=== PATIENT | male | born 1960 ===

== ENCOUNTER 2017-11-17 06:28 | Inpatient (IN) ==
[~2017-11-17 06:28] MED LIST: BACITRACIN 50,000 UNIT VIAL IRRIG ONE; LIDOCAINE W/ SODIUM BICARB 0.5 ML SYR ONE; LIDOCAINE W/ SODIUM BICARB 0.5 ML SYR SUBD ONE; Lactated Ringers 1,000 ML PRIMARY IV ONE; Sodium Chloride 0.9% vial 10 ML ONE; THROMBIN (BOVINE) 20,000 UNIT KIT TOPICAL ONE; ceFAZolin Inj 2gm (Premix) 2 GM/50 ML BAG IV ONE
[2017-11-17] MEDS ORDERED: BACITRACIN/POLYMYXIN 0.9 GM PACKET TOPICAL ONE (06:34)
[2017-11-17] MEDS ORDERED: Vancomycin Inj 1gm vial ONE (06:34)
[2017-11-17] MEDS ORDERED: REMIFENTANIL 1 MG/1 ML IV ONE ×10 (07:12→18:03)
[2017-11-17] MEDS ORDERED: MIDAZOLAM 5 MG/1 ML ONE (07:12)
[2017-11-17] MEDS ORDERED: fentaNYL Inj 250 MCG/5 ML VIAL ONE (07:12)
[2017-11-17] MEDS ORDERED: Propofol 1,000 MG/100 ML VIAL IV ONE ×3 (07:16→12:38)
[2017-11-17] MEDS ORDERED: LIDOCAINE MPF 2% - 5 ML (20 MG/1 ML) ONE ×3 (07:25→18:50)
[2017-11-17] MEDS ORDERED: LIDOCAINE HCL 2 % 10 ML JELLY URO-JECT TOPICAL ONE ×2 (08:40→08:41)
[2017-11-17] MEDS ORDERED: LIDOCAINE W/ SODIUM BICARB 0.5 ML SYR ONE (08:42)
[2017-11-17] MEDS ORDERED: Lactated Ringers 1,000 ML PRIMARY IV ONE ×4 (09:34→14:00)
[2017-11-17] MEDS ORDERED: PROPOFOL 10 MG/1 ML (200 MG/20 ML) VIAL IV ONE ×4 (11:11→18:45)
[2017-11-17] MEDS ORDERED: ONDANSETRON 4 MG/2 ML VIAL IVP PRN ×2 (13:03→16:31)
[2017-11-17] MEDS ORDERED: LIDOCAINE W/ SODIUM BICARB 0.5 ML SYR SUBD PRN (13:03)
[2017-11-17] MEDS ORDERED: Prochlorperazine Edisylate Inj 10mg/2ml vial IVP PRN (13:03)
[2017-11-17] MEDS ORDERED: Sodium Chloride 0.9% vial 10 ML ONE (13:08)
[2017-11-17] MEDS ORDERED: BACITRACIN 50,000 UNIT VIAL IRRIG ONE (13:09)
[2017-11-17] MEDS ORDERED: KETOROLAC 30 MG/1 ML VIAL ONE (14:34)
--- NOTE | 2017-11-17 14:36 | OPNOTE.NEU ---
Operative Note Operative Note: Red text is View ONLY and will NOT be part of the Report 1. The following text MUST be edited 2. Press F4 (the cursor will highlight the text in the [] that requires editing) 3. Edit highlighted text 4. Repeat until the complete. Neurosurgical Services Operative Note [facility] [place] Date of Surgery: November 17, 2017 Preoperative Diagnosis: L5-S1 Spondylolisthesis Lumbar Radiculopathy Post-Op Diagnosis: Same Procedure(s): L5-S1 Posterior Decompression and Fusion 1. Posterior decompression with complete facetectomy, 2. Inner body arthrodesis; 3. Implantation Insert and Rotate Allograft Bone Spacer, 4. Non-segmental pedicle screw instrumentation, 5. Inner transverse fusion; () 6. Preparation of graft: A. [place] of local bone graft; same incision, B. [place] of morselized graft iliac crest; different incision; C. Bone marrow aspirate, D. Allograft demineralized bone matrix and calcium osteopromotive compound , 7. Intraoperative microscopy, microsurgical technique 8. Intraoperative fluoroscopy; [id number] 9. Continuous intraoperative motor and sensory monitoring Surgeon(s): Zane Pollack MD Rehabilitation Nurse(s): EPHRAIM Cunningham Anesthesia: General Anesthesiologist / ACCESS LEAD: Maximilian Cabrera Brief Findings: Severe bilateral right more than left foraminal stenosis. Spondylolysis of L5. Procedure(s): We discussed the procedure, risks, advantages and disadvantages of surgical intervention at length. To prevent further pain, disability and potential progression of neurologic deficits, the patient would like to proceed with surgery. Introduction: After obtaining informed consent, careful consideration of the pre -operative studies and evaluation, the patient asked to proceed with surgery. The patient was taken to the operating room, given an anesthetic, positioned and prepared for surgery. All pressure points were meticulously padded and great care was taken to insure the patient was appropriately positioned to avoid any abnormal strain on the extremities or any other area. The operative region was prepared with iodine solution and isolated aseptically using routine sterile draping. Position / Approach: The patient was placed in the prone position such that a posterior approach could be taken to the lumbar spine. Exposure: A midline incision was opened sharply and extended slightly cephalad and caudad so as to incorporate the abnormal level of the patient's spine using the fluoroscope for visualization and planning. Dissection was carried with electrocautery through the subcutaneous tissues then subperiosteally along the spinous processes then lamina laterally to the lateral facet joint. A self retaining retractor was inserted exposing the inner laminar space, facet joint and space lateral to the facet joint. DECOMPRESSION: As the spine was exposed, it was clear that the involved joint was markedly incompetent. The lamina of L5 was free floating. The joint was removed medial to lateral confirming there was foraminal stenosis from herniated disk as well as calcification which extended out into the foramen laterally. To adequately decompress the level, both facets were completely removed. There was herniated disk beneath the thecal sac and removal with down biting curettes with minimal manipulation of the thecal sac. Annulotomies were placed bilaterally and disk distractor's were placed in the disk space. While distracting, a radical discectomy was performed bilaterally. The epidural space was explored extensively also to confirm no further pressure was present on any of the exiting or traversing neural elements. ARTHRODESIS: The endplates above and below the abnormal disk were scraped of cartilaginous tissue and allograft insert and rotate machined bone graft spacers were placed bilaterally. The space between the bone graft was preloaded with the bone graft mixture described below, and this mixture was also placed lateral to the bone spacers within the disk space. The bone spacers were countersunk appropriately using the fluoroscope for visualization. HARVEST / PREPARATION of BONE GRAFT: The "bone graft" was prepared from the patient's own bone derived from the left hip collected by curetting bone from the hip through a separate slab incision([id number]). This morselized bone was admixed with bone marrow aspirate also obtained from the hip ([id number]). Autologous local bone which was removed during the decompression through the same incision used for the fusion was stripped of surrounding soft tissues, morselized ([id number]) and mixed with osteopromotive calcium compound as well as allograft demineralized bone matrix ([id number]), and this was combined with the previously described hip graft and concentrated bone marrow aspirate to form the "bone graft." NON SEGMENTAL INSTRUMENTATION: The pedicles of above and below the abnormal disk were then identified under direct vision as well as using the fluoroscope for visualization. The pedicles were probed and tapped and pedicle screws were advanced, which were further tested using motor stimulation and monitoring. The screws were identified to have appropriate impedances suggesting no evidence of any contact with the surrounding neural elements. Having placed pedicle screws, they were interconnected with rods. INNER TRANSVERSE FUSION: Attention was directed to the lateral aspect of the spine. The transverse processes above and below the level were eburnated using a high speed drill equipped with a colton bur. Between this region of bone, the patient's own bone, described previously as "bone graft mixture", consisting of allograft, demineralized bone matrix, calcium compound, bone marrow aspirate, as well as morselized graft from the hip were placed between the transverse processes. NEED FOR FORMS DESIGNER: Ace Dumont PA-C, was instrumental throughout the operation to assist with exposure of the neural structures and protect them as the bony elements were removed. He was also instrumental during placement of the implant(s) which often takes more than two hands to perform safely and efficiently. OTHER TOOLS USED / UTILITY: All manipulation of the neural elements was performed using the microscope for visualization. As well, the fluoroscope was used to confirm the levels as indicated as well as to assist during implant placement and later to assess the patient's spinal alignment. There were no intra operative complications. Motor and sensory monitoring was performed throughout the procedure by a certified monitoring forestry technician in the room in communication with a remote monitoring physician and no abnormal neurological findings were encountered. CLOSURE: Thereafter, the wound was irrigated with copious amounts of antibiotic impregnated saline solution. Immaculate hemostasis was achieved using thrombin soaked Gelfoam, bone wax along the bony margins, as well as electrocautery. The wound was then closed in anatomical layers using Vicryl suture in the subcutaneous tissues followed by barbara on the skin. Estimated blood loss was less than 350 cc and none was replaced. Following the procedure the patient will be returned to the supine position, extubated then transferred to the recovery room, anticipating them to be in stable condition as compared to pre- surgically. A drain was placed in the epidural space prior to closure tunneled to an exit site lateral to the formed incision. Estimated Blood Loss: 350 cc Operative hemorrhage? Yes, expected amount. Drains: Hemovac Condition: Good Complications: None Specimen: None Authenticated by Dr. Pollack On Production
[2017-11-17] MEDS ORDERED: Sodium Chloride 0.9% 250 ML IV ONE (14:45)
[2017-11-17] MEDS ORDERED: ceFAZolin 1 GM VIAL ONE (14:45)
[2017-11-17] MEDS ORDERED: HYDROmorphone 2 MG/1 ML ONE ×2 (15:01→15:48)
[2017-11-17] MEDS: HYDROmorphone 2 MG/1 ML IVP PRN ×3 (15:03→15:54)
--- NOTE | 2017-11-17 15:22 | CRNA.PROGR ---
Anesthesia Recovery Phase I - Post Anesthesia Evaluation Patient's Condition on Arrival in Phase I: Fair Pain Level: 0 (intubated breathing on own with t-piece in place)
--- NOTE | 2017-11-17 15:23 | CRNA.PROGR ---
Anesthesia Time - - Start date: 11/17/17 End date: 11/17/17 - Procedure/Recovery Time Anesthesia : Time In: 08:50 Anesthesia : Time Out: 14:43 Anesthesia : Total Time: 353 - Total Anesthesia Time Total Anesthesia Time (minutes): 353 - Other Weight: 129.274 kg Height: 5 ft 9 in Body Mass Index (BMI): 42.0 Physical Status: P2 Anesthesia Type: General Anesthesia : ET (prone position)
[2017-11-17] MEDS ORDERED: Acetaminophen 1000mg Inj 1,000 MG/100 ML VIAL IV ONE (15:25)
[2017-11-17] MEDS ORDERED: fentaNYL Inj 100 MCG/2 ML VIAL ONE (15:26)
[2017-11-17] MEDS: fentaNYL Inj 100 MCG/2 ML VIAL IVP PRN ×2 (15:27→15:44)
--- NOTE | 2017-11-17 15:58 | DI ---
XR L-SPINE 2-3 VW,11/17/2017 3:24 PM: Clinical History: Posterior fusion and interbody fusion of the lower lumbar spine. Previous Exam: None at this facility. Findings: AP and crosstable lateral views of the lumbar spine are obtained, and demonstrate transpedicular fusi on of L5/S1. Overlying skin barbara are noted. Interbody fusion device is not well evaluated on this exam. Overlying EKG leads are seen. Impression: Postsurgical changes as above. Examination is otherwise limited due to poor penetration.
[2017-11-17] MEDS ORDERED: DOCUSATE 100 MG CAPSULE PO PRN (16:31)
[2017-11-17] MEDS ORDERED: CALCIUM CARBONATE 500 MG (TUMS) CHEWABLE TABLET PO PRN (16:31)
[2017-11-17] MEDS ORDERED: DEXTROSE 50%-WATER SYRINGE 50 ML SYRINGE IVP PRN (16:31)
[2017-11-17] MEDS ORDERED: ACETAMINOPHEN 325 MG TABLET PO PRN (16:31)
[2017-11-17] MEDS ORDERED: INSULIN ASPART 55 UNIT SUBCUT SCH (16:31)
[2017-11-17] MEDS ORDERED: DEXTROSE 31 GM GEL PO PRN (16:31)
[2017-11-17] MEDS ORDERED: Non-Formulary Drug (Cetirizine Hcl [Wal-Zyr] 10 MG) PO SCH (16:31)
[2017-11-17] MEDS ORDERED: MORPHINE SULFATE 2 MG/1 ML IVP PRN (16:31)
[2017-11-17] MEDS ORDERED: D5-1/2NS + 20mEq KCL 1,000 ML PRIMARY IV SCH (16:31)
[2017-11-17] MEDS ORDERED: BISACODYL 10 MG SUPPOSITORY RECTAL PRN (16:31)
[2017-11-17] MEDS ORDERED: CLOBETASOL PROPIONATE TOPICAL SCH (16:31)
[2017-11-17] MEDS ORDERED: ALBUTEROL INH PRN (16:31)
[2017-11-17] MEDS ORDERED: Zolpidem Tab 5 MG TAB PO PRN (16:31)
[2017-11-17] MEDS ORDERED: Insulin Sliding Scale Protocol SUBCUT PRN (16:31)
[2017-11-17] MEDS ORDERED: HYDRALAZINE 20 MG/1 ML IVP PRN (16:31)
[2017-11-17] MEDS ORDERED: LABETALOL 20 MG/4 ML (5 MG/1 ML) SYRINGE IVP PRN (16:31)
[2017-11-17] MEDS ORDERED: Glucagon Inj Vial 1 MG/ML VIAL IM PRN (16:31)
[2017-11-17] MEDS ORDERED: Ondansetron ODT Tab 4 MG TAB PO PRN (16:31)
[2017-11-17] MEDS: Insulin Lispro Flexpen 300 UNIT/3 ML INSULN.PEN SUBCUT SCH ×2 (17:35→20:45)
[2017-11-17] MEDS: Insulin Detemir 300unit/3ml Flexpen SUBCUT SCH ×2 (17:36→20:46)
[2017-11-17] MEDS: oxyCODONE-ACETAMINOPHEN 5-325 TAB PO PRN ×2 (18:00→21:34)
[2017-11-17] MEDS: MORPHINE SULFATE 4 MG/1 ML IVP PRN ×2 (19:34→23:14)
[2017-11-17] MEDS: DIAZEPAM 5 MG TABLET PO PRN (19:42)
[2017-11-17] MEDS: KETOROLAC 15 MG/1 ML VIAL IVP SCH (20:07)
[2017-11-17] MEDS: GABAPENTIN 300 MG CAPSULE PO SCH (20:44)
[2017-11-17] MEDS: Rosuvastatin Tab 20 MG TAB PO SCH (20:45)
[2017-11-17] MEDS: ceFAZolin Inj 1 GM in Sodium Chloride 0.9% 100 ML IV SCH (22:42)
[2017-11-17] MEDS: CYCLOBENZAPRINE 10 MG TABLET PO PRN (23:14)
[2017-11-18] MEDS: MORPHINE SULFATE 2 MG/1 ML IVP PRN ×4 (01:01→07:13)
[2017-11-18] MEDS: DIAZEPAM 5 MG TABLET PO PRN (01:17)
[2017-11-18] MEDS: oxyCODONE-ACETAMINOPHEN 5-325 TAB PO PRN ×6 (01:17→23:46)
[2017-11-18] MEDS: KETOROLAC 15 MG/1 ML VIAL IVP SCH ×4 (02:03→20:12)
[2017-11-18] MEDS: MORPHINE SULFATE 4 MG/1 ML IVP PRN ×2 (03:39→21:29)
[2017-11-18] MEDS: LEVOTHYROXINE 50 MCG TABLET PO SCH (04:45)
[2017-11-18] MEDS ORDERED: INSULIN ASPART 45 UNIT SUBCUT SCH (07:00)
[2017-11-18] MEDS: OMEPRAZOLE 20 MG CAPSULE PO SCH (07:00)
[2017-11-18] MEDS: ceFAZolin Inj 1 GM in Sodium Chloride 0.9% 100 ML IV SCH (07:00)
[2017-11-18] MEDS: Insulin Lispro Flexpen 300 UNIT/3 ML INSULN.PEN SUBCUT SCH ×4 (07:01→20:29)
[2017-11-18 07:24] LABS: BASOPHILS # (AUTO) 0.01 10*3/UL; BASOPHILS % (AUTO) 0.1 % (0-1); EOSINOPHILS # (AUTO) 0.06 10*3/UL; EOSINOPHILS % (AUTO) 0.4 % (0-8); Hematocrit [HCT] 43.3 % (42.0-52.0); Hemoglobin [HGB] 14.1 g/dL (14.0-18.0); LYMPHOCYTES # (AUTO) 1.57 10*3/uL; MEAN CORPUSCULAR HEMOGLOBIN 28.6 PG (27-31); MEAN CORPUSCULAR HGB CONC 32.6 g/dL (33-37); MEAN CORPUSCULAR VOLUME 87.8 FL (80-90); MEAN PLATELET VOLUME 9.5 FL (7.4-12.2); MONOCYTES # (AUTO) 1.08 10*3/UL (0.3-0.8); MONOCYTES % (AUTO) 7.9 % (5-15); NEUTROPHILS # (AUTO) 10.87 10*3/UL; NEUTROPHILS % (AUTO) 79.8 % (50-80); RED BLOOD COUNT 4.93 10^6/uL (4.70-6.10)
[2017-11-18 07:33] LABS: PLATELET MORPHOLOGY COMMENT NORMAL MORPHOLOGY (NORM); RBC MORPHOLOGY COMMENT NORMAL MORPHOLOGY (NORM); WBC MORPHOLOGY COMMENT NORMAL MORPHOLOGY (NORM)
[2017-11-18 07:44] LABS: BLOOD UREA NITROGEN 13 mg/dL (7-22); BUN/CREATININE RATIO 16.25 (6-20)
[2017-11-18] MEDS: HYDROCHLOROTHIAZIDE 25 MG TABLET PO SCH (08:25)
[2017-11-18] MEDS: GABAPENTIN 300 MG CAPSULE PO SCH ×2 (08:25→20:11)
[2017-11-18] MEDS: LISINOPRIL 20 MG TABLET PO SCH (08:25)
[2017-11-18] MEDS: Insulin Detemir 300unit/3ml Flexpen SUBCUT SCH ×2 (08:26→20:29)
[2017-11-18] MEDS ORDERED: INSULIN ASPART 20 UNIT SUBCUT SCH (11:00)
--- NOTE | 2017-11-18 15:29 | PTI REPORT ---
Thank you for the referral of Fuad Villanueva. He was seen on 11/17/17 for an inpatient evaluation post op mobilization secondary to a lumbar fusion. SUBJECTIVE: The patient is a 57-year-old male who underwent a lumbar fusion. The patient reports a pain level of 7/10 on the verbal analog scale (0=no pain, 10=worst pain), primarily in his low back and bilateral upper buttock region. The patient states that he would like to get up and try walking in order to relieve some pressure from his back. The patient reports that prior to surgery he was having issues with numbness and tingling along with weakness into the right lower extremity. He states since surgery he is able to feel his big toe at this time, which is an improvement from his symptoms before. The patient states that he lives in [place] with his . He reports that he has about 7 steps to get into the house and a few steps within the house. The patient states that prior to his surgery he was not using any kind of assistive device and was independent with dressing. PAST MEDICAL HISTORY: Past medical history can be found in the patient's medical record. OBJECTIVE FINDINGS: General observations: The patient was alert and oriented to setting upon PT arrival. The patient was laying supine in bed with a hemovac drain in place along with a dressing over his incision site, an IV, a Deutsch, and was on 3 liters of oxygen. Prior to any movement, the patient was instructed on our restrictions with lumbar fusions including no bending, no twisting, and no lifting greater than 10 pounds. The patient verbalized understanding of the restrictions. Bed mobility: The patient was educated on how to properly perform a log roll in order to transfer from supine to sit. The patient required mod assist x2 in order to scoot over in the bed so that he was able to roll to a side and push himself up. The patient required mod verbal cueing to properly perform the log roll. Once sitting up, the patient denied any lightheadedness or dizziness. He did state that he had some pressure relief from his back once in a seated position. The patient required mod assist x1 in order to go from a seated to supine position and log roll back into bed. Activities of daily living: The patient was then instructed on how to properly don and doff Cybertech brace. Transfers: A gait belt was placed around the patient and he went from a seated to standing position. In a standing position, the patient had hand hold assist x2 on a walker due to feeling dizzy following surgery and unsteady. The Cybertech brace was fit around the patient to ensure proper size. The patient performed a stand to sit transfer with mod verbal cueing. Ambulation: The patient then ambulated with contact guard assist x2 and use of walker x15 feet. The patient then ambulated back toward the bed. ASSESSMENT: The patient reports when he is up and moving he back does feel better. The patient has good rehab potential. Problem List: Lumbar fusion precautions Decreased ability to perform transfers into and out of bed performing log roll independently and safely Decreased ability to perform functional ambulation/stairs in order to return home Short-Term Goals: To be met by discharge from inpatient: Patient will verbalize understanding of precautions of no bending/lifting/ twisting. Patient will be able to independently log roll into and out of bed. Patient will be able to don and doff his back brace independently and ambulate with least restrictive assistive device for at least 150 feet. Patient will be able to ascend and descent 7 stairs independently so that he is able to return home. Long-Term Goals: To be met following discharge from inpatient: Patient will be seen by outpatient physical therapy when deemed necessary by his surgeon. TREATMENT PLAN: Patient will be seen B.I.D during the week and one time per day over the weekend as an inpatient to address the above goals and objectives. INITIAL TREATMENT: Treatment today consisted of the initial evaluation. Once in bed the SCDs were placed back around the patient's bilateral calves and his call light was placed within reach and the bed alarm was set. The therapist did discuss with nursing staff getting the patient up a few more times before we see him tomorrow, for him to ambulate with the walker due to some unsteadiness that he is having, to make sure that his back brace is in place when the patient is up and moving, and to remind the patient of his precautions of no bending, lifting, or twisting and performing a log roll into and out of bed. SABI
--- NOTE | 2017-11-18 16:00 | PT AM DAY ---
Diagnosis : LUMBAR FUSION AM - Physical Therapy S: Patient states that he is doing better this morning he states that he has been up with nursing staff a few times once last night and also did get up with them a couple times this morning and overall is moving better. Patient states that he has forgotten what the precautions were so we will review those again this morning. O: Treatment consists of reviewing of the no bending lifting twisting precautions. Patient was then able to preform a log roll from supine to seated position with minimal verbal cueing and stand by assist times one for safety. Patient was able to perform sit to stand from bed with stand by assist times one. Once standing patient was able to don his cybetech brace he did require med assist to make sure that the brace was not twisted in the back but otherwise was able to put the brace on correctly. Patient ambulated with hand held assist times one on the left side for 200 ft. Got to discuss with patient utilizing a second plank secondary to the weakness up his right lower extremity prior to surgery and he did very well with the hand held assist patient was properly fitted for a cane. Once back in his room patient wished to sit in his chair so he was left in his chair with the chair alarm on and call light within reach with instructions to call whenever he wanted to get up and walk. A: Patient is doing very well he is able to ambulate greater distances and requires less assist he did require review of the post surgical precautions and we will review those one more time this afternoon and also do stairs this afternoon to make sure patient is safe to return home. P: Continue seeing patient BID during the week and one time per day over the weekend for transfers, ambulation, and range of motion/strengthening exercises.[] ARIADNAD
--- NOTE | 2017-11-18 16:15 | CRNA.PROGR ---
Anesthesia Note - Progress Notes Anesthesia Progress Note: Post OP Anesthesia Note Pt is standing and ambulating in his room, and is dressed. He states that his pain is well under control, and feels as though his preoperative symptoms are resolving. He is tolerating a regular diet. He denies any residual problems from the anesthetic. Current VS are stable. Vital Signs - Last Taken Temperature 97.3 F 11/18/17 15:25 Pulse Rate 88 11/18/17 15:25 Respiratory Rate 14 11/18/17 15:25 Blood Pressure 118/58 11/18/17 15:25 Pulse Ox 95 11/18/17 15:25
--- NOTE | 2017-11-18 16:28 | PT.PROG ---
Progress Note Progress Note: S: Fuad is doing well this afternoon. Reports 08/09 pain. O: Tx consisted of: review of post surgical precautions, and patient was issued written instructions of no BLT, wearing brace when up, log rolling, and performing gentle nerve glides with DF/PF along with walking. Pt was able to don /doff brace without assistance. Pt able to perform log roll into/out of bed with SBA x 1 for safety. Pt ambulated x 150 ft with SPC and CGA x 1 for safety. Pt performed 12 stairs with SPC and CGA x1 for safety. Pt fatigues easily with exercises and has difficulties with remembering to breathe when walking - we worked on breathing techniques with exertion. A: Pt demonstrated ability to don/doff brace independently along with proper log rolling technique without assistance. Pt does need cuing with breathing with exertion but overall is moving around well. Recommended that pt utilize SPC when up and moving due to weakness of RLE. Pt has met goals for therapy. P: D/c from physical therapy due to goals met. Discussed with nursing staff that PT will d/c and pt is still to get up and walk with nursing staff until d/ c.
--- NOTE | 2017-11-18 16:43 | NEURO.PROG ---
Subjective Post Op Day: 1 Pain Management: PO Deutsch Catheter: No Diet: Regular Ambulating: Yes Date and Time of Service: 11/18; 3:45PM Interval History: doing well; no specific complaints drain output has picked up with increased activity will continue to monitor d/c and discharge home when out. Objective : Data - Labs CBC and BMP: 11/18/17 07:16 11/18/17 07:16 - Vital Signs Vital Signs and I&O: Vital Signs - Last Taken Temperature 97.3 F 11/18/17 15:25 Pulse Rate 88 11/18/17 15:25 Respiratory Rate 14 11/18/17 15:25 Blood Pressure 118/58 11/18/17 15:25 Pulse Ox 95 11/18/17 15:25 Intake and Output (24hr x 4 totals) 11/16/17 11/17/17 11/18/17 11/19/17 05:59 05:59 05:59 05:59 Intake Total 6861 / 6861 1000 / 1000 Output Total 3375 / 3375 200 / 200 Balance 3486 / 3486 800 / 800
[2017-11-18] MEDS: Rosuvastatin Tab 20 MG TAB PO SCH (20:11)
[2017-11-18 20:43] VITALS: RESP 16
[2017-11-18] MEDS: CYCLOBENZAPRINE 10 MG TABLET PO PRN (23:33)
[2017-11-19] MEDS: KETOROLAC 15 MG/1 ML VIAL IVP SCH ×2 (01:31→07:22)
[2017-11-19] MEDS: LEVOTHYROXINE 50 MCG TABLET PO SCH (04:30)
[2017-11-19] MEDS: oxyCODONE-ACETAMINOPHEN 5-325 TAB PO PRN (05:39)
[2017-11-19 06:45] VITALS: BP 118/69; TEMP 97.5; O2SAT 97
[2017-11-19] MEDS: Insulin Lispro Flexpen 300 UNIT/3 ML INSULN.PEN SUBCUT SCH (07:10)
[2017-11-19] MEDS: OMEPRAZOLE 20 MG CAPSULE PO SCH (07:16)
[2017-11-19] MEDS: GABAPENTIN 300 MG CAPSULE PO SCH (08:55)
[2017-11-19] MEDS: LISINOPRIL 20 MG TABLET PO SCH (08:55)
[2017-11-19] MEDS: HYDROCHLOROTHIAZIDE 25 MG TABLET PO SCH (08:55)
[2017-11-19] MEDS: Insulin Detemir 300unit/3ml Flexpen SUBCUT SCH (08:58)
--- NOTE | 2017-11-21 08:51 | OTI REPORT ---
Thank you for the referral of Fuad Villanueva. He was seen on 11/18/17 for an occupational therapy inpatient evaluation status post lumbar fusion. SUBJECTIVE: The patient is a 57-year-old male who underwent a lumbar fusion. The patient reports that over time his back has just gotten worse. He has had a few accidents in his lifetime that probably injured him. The patient reports that his pain is around a 5 to 6/10 on the verbal analog scale (0=no pain, 10=worst pain) this morning. The patient does live in [place] with his . 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 The patient reports he does have a bathtub but no bath seat and he does have a very low toilet. The patient reports that prior to surgery he was not using anything to walk and he does sleep with oxygen. The patient does not report any other medical history such as shoulder issues or back issues that will hinder our progress with this surgery. PAST MEDICAL HISTORY: Past medical history can be found in the patient's medical record. OBJECTIVE FINDINGS: Bed mobility: The patient was able to complete bed mobility from supine to sitting edge of bed. Activities of daily living: Once edge of bed, the patient was able to complete lower extremity dressing and upper extremity dressing with education of no bending/lifting/twisting and using a ux specialist and sock aide. The patient required stand by assist only for the education. Transfers: The patient was able to complete a sit to stand transfer with contact guard assist. Ambulation: The patient was able to functionally ambulate without a walker this morning. ASSESSMENT: At this time the patient was educated on and knows how to appropriately use adaptive equipment and will be discharged from OT at this time. TREATMENT PLAN: Patient will be discharged from occupational therapy services at this time. INITIAL TREATMENT: Treatment today consisted of the inpatient evaluation activities only. The patient did request a shower chair and a high rise toilet seat so these items were issued to the patient. The patient was educated and knows how to appropriately use the adaptive equipment. SABI
--- NOTE | 2017-11-22 00:48 | PDOC ---
HPI - History of Present Illness Date of Service: 11/17/17 Time of Service: 13:00 Chief Complaint: Back and leg pain. History of Present Illness: 11-17-2017, 1300 hours Updated History and Physical See previous office note. He has back and leg pain from L5-S1 spondylolisthesis. Plan L5-S1 poterior fusion. There have been no changes in his physical examination or history. His labs and pre-op evaluation are acceptable for surgery. Proceed with L5-S1 PLIF. Past Medical History Tobacco Use: Former Smoker In the Past 12 Months, Have Used or Abuse Any of the Following Substance: None Medication / Allergies Home Medications: Home Medications 3 Medication Instructions Recorded Confirmed Type albuterol 90 mcg/actuation aerosol 1 inh INH Q4-6H PRN 05/09/17 11/17/17 History inhaler amlodipine 10 mg tablet 10 mg PO QDAY tab 05/09/17 11/17/17 History cetirizine 10 mg capsule 10 mg PO QDAY 05/09/17 11/17/17 History clobetasol 0.05 % lotion 1 applic TOPICAL QAM AND QPM 05/09/17 11/17/17 History epinephrine 0.3 mg/0.3 mL 0.1 mg IM Q10M PRN 05/09/17 11/17/17 History injection, auto-injector hydrochlorothiazide 25 mg tablet 25 mg PO DAILY 05/09/17 11/17/17 History insulin aspart U-100 100 unit/mL 45 unit SUBCUT AC BK 05/09/17 11/17/17 History subcutaneous pen levothyroxine 50 mcg capsule 50 mcg PO DAILY 05/09/17 11/17/17 History lisinopril 40 mg tablet 40 mg PO QDAY 05/09/17 11/17/17 History metformin 1,000 mg tablet 1,000 mg PO BID 05/09/17 11/17/17 History omeprazole 20 mg capsule,delayed 20 mg PO QDAY 05/09/17 11/17/17 History release gabapentin 300 mg capsule 1,200 mg PO BID cap 08/18/17 11/17/17 History Insulin Aspart [Novolog Flexpen] 20 unit SUBCUT AC DORI 11/17/17 11/17/17 History Insulin Aspart [Novolog Flexpen] 55 unit SUBCUT AC DIN 11/17/17 11/17/17 History Insulin Detemir [Levemir Flextouch] 60 unit SUBCUT QAM 11/17/17 11/17/17 History Insulin Detemir [Levemir Flextouch] 65 unit SUBCUT Q EVENING 11/17/17 11/17/17 History Rosuvastatin Calcium 40 mg PO DAILY 11/17/17 11/17/17 History Ciprofloxacin HCl [Cipro] 750 mg PO Q12H 5 Days #10 tab 11/19/17 Rx Cyclobenzaprine HCl [Flexeril] 10 mg PO TID PRN #60 tab 11/19/17 Rx oxyCODONE/APAP 5/325 Tab 1 tab PO Q6H PRN #90 tab 11/19/17 Rx [Percocet 5/325 Tab] Allergies/Adverse Reactions: Allergies 3 Allergy/AdvReac Type Severity Reaction Status Date / Time bee venom protein (honey bee) Allergy Anaphylaxis Verified 11/18/17 18:28 Exam - Vitals Vital Signs: Vital Signs Temperature 97.5 F Temperature Source Oral Pulse Rate [Pulse Oximeter] 88 Pulse Rate [Pulse Oximeter] 79 Pulse Rate 77 Respiratory Rate 16 Blood Pressure [Right Arm] 118/69 Blood Pressure [Left Arm] 124/71 Blood Pressure 131/81 Pulse Ox 97 Oxygen Flow Rate 1 Oxygen Delivery Method Nasal Cannula Height 5 ft 9 in Weight 310 lb Results - Labs CBC and BMP: 11/18/17 07:16 11/18/17 07:16
== END 2017-11-19 10:39 | disposition home or self-care (01) | DRG 460 ==
LOC: OPS 06:28 → EDSTATUS 09:45 → MED/SURG 16:02
PROVIDERS: ADMIT Neurological Surgery; ATTEND Neurological Surgery